=== PATIENT | male | born 1965 | race Caucasian/White ===

== ENCOUNTER → 2020-05-27 | Outpatient (CLI) | payer OTHER | LOC: CT 09:00 | DX: Z01.89 Encounter for other specified special examinations (principal); C20 Malignant neoplasm of rectum; C77.2 Secondary and unspecified malignant neoplasm of intra-abdominal lymph nodes; G89.3 Neoplasm related pain (acute) (chronic); J91.0 Malignant pleural effusion; R91.1 Solitary pulmonary nodule; M79.89 Other specified soft tissue disorders; Z79.899 Other long term (current) drug therapy | CPT/HCPCS: 71260; Q9967 ==

== ENCOUNTER → 2021-05-04 | Outpatient (CLI) | payer OTHER | LOC: CT 04-27 10:30 | DX: C20 Malignant neoplasm of rectum (principal); D60.0 Chronic acquired pure red cell aplasia; G89.3 Neoplasm related pain (acute) (chronic); C77.2 Secondary and unspecified malignant neoplasm of intra-abdominal lymph nodes | CPT/HCPCS: 71260; Q9967 ==

== ENCOUNTER → 2021-05-19 | Outpatient (CLI) | payer OTHER | LOC: HEART 5 13:58 | DX: R06.00 Dyspnea, unspecified (principal) | CPT/HCPCS: 94060; 94729 ==